=== PATIENT | female | born 1950 | race Caucasian/White ===

== ENCOUNTER 2022-05-03 20:29 | Inpatient (IN) | payer MEDICARE ==
[2022-05-03] MEDS ORDERED: Acetaminophen 325 MG TAB PO PRN (20:50)
[2022-05-03 21:16] VITALS: BMI 23.5
[2022-05-03] MEDS ORDERED: Atorvastatin Calcium 10 MG TAB PO SCH (21:30)
[2022-05-03] MEDS: Enoxaparin Sodium 40 MG/0.4 ML SYRINGE SC SCH (21:39)
[2022-05-03] MEDS: Azithromycin 500 MG in Sodium Chloride 0.9% 250 ML 250 ML IVPB SCH (21:56)
[2022-05-03] MEDS: Sodium Chloride 0.9% 1,000 ML IV SCH (21:56)
[2022-05-03] MEDS: cefTRIAXone\\ROCEPHIN 1 GM in Sodium Chloride 0.9% 100 ML IVPB SCH (23:10)
[2022-05-03] MEDS ORDERED: Metoprolol Tartrate 5 MG/5 ML VIAL IVP SCH (23:59)
[2022-05-04 00:17] LABS: SARS-CoV-2 NAA Rapid Test Not Detected (NotDetected)
[2022-05-04 00:25] LABS: Troponin I Less than 0.010 ng/mL (< 0.028)
[2022-05-04] MEDS ORDERED: Diltiazem 125 MG in Sodium Chloride 0.9% 100 ML IVPB SCH (01:45)
[2022-05-04 05:15] LABS: #Monocytes 0.8 10x3/uL (0.0-1.1); #Neutrophils 10.3 10x3/uL (1.5-8.4); %Basophils 0.2 % (0.0-2.0); %Eosinophils 0.2 % (0.0-6.0); %Lymphocytes 15.1 % (18.0-47.0); Hemoglobin 10.9 g/dL (12.0-15.5); Mean Corpuscular HGB CONC 36.8 g/dL (32.0-36.0); Mean Corpuscular Hemoglobin 31.5 pg (27.0-33.0); Mean Corpuscular Volume 85.5 fl (81.6-98.3); Mean Platelet Volume 10.2 fl (7.4-10.4); Platelet Count 220 10x3/uL (150-450); RBC Distribution Width 12.9 % (11.5-14.5); Red Blood Cell (RBC) Count 3.46 10x6/uL (3.90-5.03); White Blood Cell (WBC) Count 13.2 10x3/uL (3.5-10.5)
[2022-05-04 05:29] LABS: Anion Gap 13 mmol/L (10-20); BUN (Urea Nitrogen) 11 mg/dL (9.8-20.1); Calc. Creatinine Clearance 89 mL/min (70-130); Calcium 8.6 mg/dL (7.8-10.44); Carbon Dioxide 19 mmol/L (23-31); Chloride 100 mmol/L (98-107); Estimated GFR 95; Glucose 116 mg/dL (83-110); Potassium 3.3 mmol/L (3.5-5.1); Sodium 129 mmol/L (136-145)
[2022-05-04 05:30] LABS: Troponin I Less than 0.010 ng/mL (< 0.028)
[2022-05-04] MEDS ORDERED: FLU VACC QS2022-23(65YR UP)/PF 240 MCG/0.7 ML SYRINGE IM ONE (09:00)
[2022-05-04] MEDS ORDERED: Potassium Chloride 20 MEQ TAB PO SCH (10:30)
[2022-05-04] MEDS: Magnesium 2 GM/50 ML(in water) 2 GM in Premix Bag 1 BAG IVPB SCH ×2 (10:35→12:59)
[2022-05-04] MEDS: metFORMIN 500 MG TAB PO SCH ×2 (10:38→21:25)
[2022-05-04] MEDS: Losartan Potassium 50 MG TAB PO SCH ×2 (10:38→21:19)
[2022-05-04] MEDS: Aspirin 81 mg Enteric Coated Tablet PO SCH (10:39)
[2022-05-04] MEDS: Bupropion 150 MG XL TAB PO SCH (10:40)
[2022-05-04] MEDS: FLUTICASONE INH SCH (10:42)
[2022-05-04] MEDS: VILANTEROL INH SCH (10:42)
[2022-05-04] MEDS: Fluticasone Propionate Nasal Spray 16 gm Bottle NASAL SCH (10:43)
[2022-05-04] MEDS: Stress 600 With Zinc 1 TAB PO SCH (10:56)
[2022-05-04] MEDS ORDERED: GUAIFENESIN SF SOLN 200 MG/10 ML UDCUP PO SCH (21:00)
[2022-05-04] MEDS: Atorvastatin Calcium 10 MG TAB PO SCH (21:18)
[2022-05-04] MEDS: cefTRIAXone\\ROCEPHIN 1 GM in Sodium Chloride 0.9% 100 ML IVPB SCH (21:18)
[2022-05-04] MEDS: Enoxaparin Sodium 40 MG/0.4 ML SYRINGE SC SCH (21:19)
[2022-05-04] MEDS: guaiFENesin ER 600 MG TAB PO SCH (21:25)
[2022-05-04] MEDS: Sodium Chloride 0.9% 1,000 ML IV SCH (22:09)
[2022-05-04] MEDS: Azithromycin 500 MG in Sodium Chloride 0.9% 250 ML 250 ML IVPB SCH (22:09)
[2022-05-05] MEDS ORDERED: Metoprolol Tartrate 5 MG/5 ML VIAL IVP SCH (03:45)
[2022-05-05 04:24] LABS: #Monocytes 0.6 10x3/uL (0.0-1.1); #Neutrophils 5.5 10x3/uL (1.5-8.4); %Basophils 0.2 % (0.0-2.0); %Eosinophils 0.4 % (0.0-6.0); %Lymphocytes 22.8 % (18.0-47.0); %Monocytes 7.4 % (0.0-10.0); %Neutrophils 68.6 % (40.0-75.0); Hemoglobin 10.5 g/dL (12.0-15.5); Mean Corpuscular HGB CONC 35.6 g/dL (32.0-36.0); Mean Corpuscular Hemoglobin 30.5 pg (27.0-33.0); Mean Corpuscular Volume 85.8 fl (81.6-98.3); Mean Platelet Volume 9.5 fl (7.4-10.4); Platelet Count 222 10x3/uL (150-450); RBC Distribution Width 13.2 % (11.5-14.5); Red Blood Cell (RBC) Count 3.44 10x6/uL (3.90-5.03); White Blood Cell (WBC) Count 8.1 10x3/uL (3.5-10.5)
[2022-05-05 04:41] LABS: Troponin I Less than 0.010 ng/mL (< 0.028)
[2022-05-05 04:54] LABS: Anion Gap 13 mmol/L (10-20); BUN (Urea Nitrogen) 6 mg/dL (9.8-20.1); Calc. Creatinine Clearance 87 mL/min (70-130); Calcium 8.1 mg/dL (7.8-10.44); Carbon Dioxide 21 mmol/L (23-31); Chloride 105 mmol/L (98-107); Estimated GFR 94; Glucose 106 mg/dL (83-110); Potassium 3.8 mmol/L (3.5-5.1); Sodium 135 mmol/L (136-145)
[2022-05-05] MEDS ORDERED: GUAIFENESIN SF SOLN 200 MG/10 ML UDCUP PO SCH (09:00)
[2022-05-05] MEDS: guaiFENesin ER 600 MG TAB PO SCH ×2 (09:56→21:50)
[2022-05-05] MEDS: Aspirin 81 mg Enteric Coated Tablet PO SCH (09:57)
[2022-05-05] MEDS: Losartan Potassium 50 MG TAB PO SCH ×2 (09:57→21:51)
[2022-05-05] MEDS: Bupropion 150 MG XL TAB PO SCH (09:57)
[2022-05-05] MEDS: Stress 600 With Zinc 1 TAB PO SCH (09:57)
[2022-05-05] MEDS: metFORMIN 500 MG TAB PO SCH ×2 (09:59→21:50)
[2022-05-05] MEDS: Fluticasone Propionate Nasal Spray 16 gm Bottle NASAL SCH (10:00)
[2022-05-05] MEDS: FLUTICASONE INH SCH (10:00)
[2022-05-05] MEDS: VILANTEROL INH SCH (10:00)
[2022-05-05] MEDS ORDERED: Potassium Chloride 20 MEQ TAB PO SCH (10:00)
[2022-05-05] MEDS ORDERED: Magnesium 2 GM/50 ML(in water) 2 GM in Premix Bag 1 BAG IVPB SCH (16:00)
[2022-05-05] MEDS ORDERED: Polyethylene Glycol 3350 17 GM Packet PO PRN (16:01)
[2022-05-05] MEDS ORDERED: Polyethylene Glycol 3350 17 GM Packet PO SCH (16:30)
[2022-05-05] MEDS: Sodium Chloride 0.9% 1,000 ML IV SCH (17:58)
[2022-05-05] MEDS: Enoxaparin Sodium 40 MG/0.4 ML SYRINGE SC SCH (21:50)
[2022-05-05] MEDS: Atorvastatin Calcium 10 MG TAB PO SCH (21:50)
[2022-05-05] MEDS: cefTRIAXone\\ROCEPHIN 1 GM in Sodium Chloride 0.9% 100 ML IVPB SCH (22:00)
[2022-05-05] MEDS ORDERED: Azithromycin 250 MG TAB PO SCH (22:00)
[2022-05-06 05:24] LABS: #Eosinphils 0.1 10x3/uL (0.0-0.5); #Monocytes 0.7 10x3/uL (0.0-1.1); #Neutrophils 3.8 10x3/uL (1.5-8.4); %Basophils 0.4 % (0.0-2.0); %Eosinophils 1.3 % (0.0-6.0); %Lymphocytes 32.9 % (18.0-47.0); %Monocytes 9.8 % (0.0-10.0); %Neutrophils 54.5 % (40.0-75.0); Hemoglobin 10.2 g/dL (12.0-15.5); Mean Corpuscular HGB CONC 34.1 g/dL (32.0-36.0); Mean Corpuscular Hemoglobin 29.9 pg (27.0-33.0); Mean Corpuscular Volume 87.7 fl (81.6-98.3); Mean Platelet Volume 9.7 fl (7.4-10.4); Platelet Count 249 10x3/uL (150-450); RBC Distribution Width 13.6 % (11.5-14.5); Red Blood Cell (RBC) Count 3.41 10x6/uL (3.90-5.03)
[2022-05-06 05:40] LABS: Anion Gap 12 mmol/L (10-20); BUN (Urea Nitrogen) 7 mg/dL (9.8-20.1); Calc. Creatinine Clearance 87 mL/min (70-130); Calcium 8.6 mg/dL (7.8-10.44); Carbon Dioxide 21 mmol/L (23-31); Chloride 105 mmol/L (98-107); Estimated GFR 94; Glucose 99 mg/dL (83-110); Potassium 4.3 mmol/L (3.5-5.1); Sodium 134 mmol/L (136-145)
[2022-05-06] MEDS: Polyethylene Glycol 3350 17 GM Packet PO SCH ×2 (08:26→10:06)
[2022-05-06] MEDS: Bupropion 150 MG XL TAB PO SCH (08:27)
[2022-05-06] MEDS: Losartan Potassium 50 MG TAB PO SCH (08:27)
[2022-05-06] MEDS: metFORMIN 500 MG TAB PO SCH (08:27)
[2022-05-06] MEDS: Aspirin 81 mg Enteric Coated Tablet PO SCH (08:27)
[2022-05-06] MEDS: VILANTEROL INH SCH (09:15)
[2022-05-06] MEDS: guaiFENesin ER 600 MG TAB PO SCH (09:15)
[2022-05-06] MEDS: Stress 600 With Zinc 1 TAB PO SCH (09:15)
[2022-05-06] MEDS: FLUTICASONE INH SCH (09:15)
[2022-05-06] MEDS: Fluticasone Propionate Nasal Spray 16 gm Bottle NASAL SCH ×2 (09:16→09:19)
[2022-05-06] MEDS: Sodium Chloride 0.9% 1,000 ML IV SCH (09:19)
[2022-05-06 11:16] VITALS: BP 146/74; TEMP 98.2
== END 2022-05-06 14:38 | disposition home or self-care (01) | DRG 194 ==
LOC: INTOOBSV 20:29 → CSHTELE 20:29 → OBSVTOIN 05-04 11:53
PROVIDERS: ADMIT Family Medicine; ATTEND Hospitalist
DX: J12.1 Respiratory syncytial virus pneumonia (principal); E87.1 Hypo-osmolality and hyponatremia; I50.42 Chronic combined systolic (congestive) and diastolic (congestive) heart failure; I47.1 Supraventricular tachycardia; K92.2 Gastrointestinal hemorrhage, unspecified; I48.0 Paroxysmal atrial fibrillation; E11.9 Type 2 diabetes mellitus without complications; K21.9 Gastro-esophageal reflux disease without esophagitis; E87.6 Hypokalemia; E78.2 Mixed hyperlipidemia; D64.9 Anemia, unspecified; I34.0 Nonrheumatic mitral (valve) insufficiency; J15.9 Unspecified bacterial pneumonia; I11.0 Hypertensive heart disease with heart failure; Z20.822 Contact with and (suspected) exposure to COVID-19; Z90.49 Acquired absence of other specified parts of digestive tract; Z98.890 Other specified postprocedural states; Z79.82 Long term (current) use of aspirin; Z79.899 Other long term (current) drug therapy; Z79.84 Long term (current) use of oral hypoglycemic drugs
CPT/HCPCS: 36415; 80048; 83735; 84443; 84484; 85025; 93005; 93010; 93306; J0456; J0696; J1650; J3475; J3490; J7050; U0002